=== PATIENT | female | born 1980 | race Caucasian/White ===

== ENCOUNTER 2017-04-07 16:32 | Emergency (ER) | payer BC ==
--- NOTE | 2017-04-07 18:22 | UC ---
Complaint Female HPI - HPI Summary HPI Summary: C/o painful irritation with walking and urination around labia-began after whering a thron and dancing and sweating 2 nights ago---though she had a yeast infection so she tried monostat with out relief of sx - History Of Current Complaint Chief Complaint: UCGU Stated Complaint: PERSONAL Time Seen by Provider: 04/07/17 17:58 Hx Obtained From: Patient Hx Last Menstrual Period: 2 wks ?: No Onset/Duration: Sudden Onset, Lasting Days - 2 Timing: Constant Severity Initially: Severe Severity Currently: Severe Pain Intensity: 10 - hurts to walk Pain Scale Used: 0-10 Numeric Character: Burning Aggravating Factor(s): Movement, Urination Alleviating Factor(s): Nothing Associated Signs And Symptoms: Positive: Genital Swelling - Allergies/Home Medications Allergies/Adverse Reactions: Allergies Allergy/AdvReac Type Severity Reaction Status Date / Time Cephalexin [From Keflex] Allergy See Comment Verified 04/07/17 16:49 PMH/Surg Hx/FS Hx/Imm Hx Previously Healthy: Yes Psychological History: Anxiety - Surgical History Surgical History: Yes Surgery Procedure, Year, and Place: tubal ligation - Family History Known Family History: Positive: None - Social History Occupation: Employed Full-time - truck driver heavy Lives: With Family Alcohol Use: Rare Substance Use Type: None Smoking Status (MU): Heavy Every Day Tobacco Smoker Type: Cigarettes Amount Used/How Often: ! PPD Review of Systems Constitutional: Negative Skin: Other - skin around vagina Eyes: Negative ENT: Negative Respiratory: Negative Cardiovascular: Negative Gastrointestinal: Negative Genitourinary: Negative, Other - labia tenderness, eythema and pain Motor: Negative Neurovascular: Negative Musculoskeletal: Negative Neurological: Negative Psychological: Negative Is Patient Immunocompromised?: No All Other Systems Reviewed And Are Negative: Yes Physical Exam Triage Information Reviewed: Yes Appearance: Well-Appearing, Pain Distress, Thin Vital Signs: Initial Vital Signs Temp 97.6 F 04/07/17 16:45 Pulse 108 04/07/17 16:45 Resp 18 04/07/17 16:45 BP 128/69 04/07/17 16:45 Pulse Ox 100 04/07/17 16:45 Vital Signs Reviewed: Yes Eye Exam: Normal Eyes: Positive: Conjunctiva Clear ENT Exam: Normal ENT: Positive: Normal ENT inspection, Hearing grossly normal, TMs normal. Negative: Nasal congestion, Nasal drainage, Trismus, Muffled/hoarse voice Dental Exam: Normal Neck exam: Normal Neck: Positive: Supple, Nontender Respiratory Exam: Normal Respiratory: Positive: Chest non-tender, Lungs clear, Normal breath sounds, No respiratory distress, No accessory muscle use Cardiovascular Exam: Normal Cardiovascular: Positive: RRR, No Murmur, Pulses Normal, Brisk Capillary Refill Abdominal Exam: Normal Abdomen Description: Positive: Nontender, No Organomegaly, Soft Bowel Sounds: Positive: Present Musculoskeletal Exam: Normal Musculoskeletal: Positive: Strength Intact, ROM Intact, No Edema Neurological Exam: Normal Neurological: Positive: Alert, Muscle Tone Normal Psychological Exam: Normal Skin Exam: Normal Skin: Positive: Other - labia swelling and erythema UC Physical Exam Vital Signs On Initial Exam: Initial Vitals Temp Pulse Resp BP Pulse Ox 97.6 F 108 18 128/69 100 04/07/17 16:45 04/07/17 16:45 04/07/17 16:45 04/07/17 16:45 04/07/17 16:45 - Genitalia Exam Female Genitourinary: Other - vulva--irratation, erythema Re-Evaluation - Re-Evaluation First Eval Change: Improved - external discomfort with pelvic examination--topical lidocaine applied with relief of discomfort Complaint Female Dx - Course Course Of Treatment: cool compress, lidocaine topical 4 times a day prn tylenol/ ibuprofen follow with pcp - Differential Dx/Diagnosis Provider Diagnoses: External genital mechanical irratation Discharge - Discharge Plan Condition: Stable Disposition: HOME Patient Education Materials: Acetaminophen (By mouth), Ibuprofen (By mouth), Cold Compress or Soak (ED) Referrals: [facility] [Provider Group] - 3 Days Additional Instructions: 3 cc of lidocaine topical on a gauze apply to labia minor 4-5 times a day for pain
[2017-04-07] MEDS ORDERED: Lidocaine 2% JELLY* 10 ML JELLY TOPICAL ONE (18:43)
[2017-04-07] MEDS ORDERED: Lidocaine 4% GEL* 10 GM TUBE TOPICAL ONE ×2 (18:43→18:56)
[2017-04-07] MEDS ORDERED: Lidocaine 4% TOPICAL* 50 ML TOP.SOLN TOPICAL ONE (18:56)
[2017-04-07 19:14] VITALS: BP 115/85
--- NOTE | 2017-04-08 17:19 | UC ---
Progress - Progress Note Progress Note: please notify pt she has trich flagyl 500mg bid x 7 days e Rxed partner needs to be treated too Re-Evaluation - Re-Evaluation First Eval Change: Improved - external discomfort with pelvic examination--topical lidocaine applied with relief of discomfort
== END 2017-04-07 19:22 | disposition home or self-care (01) ==
LOC: UCEAST 16:32
DX: N94.9 Unspecified condition associated with female genital organs and menstrual cycle (principal); F17.210 Nicotine dependence, cigarettes, uncomplicated
CPT/HCPCS: 81003; 81025; 87086; 87480; 87491; 87510; 87591; 87660; 99213; A9270-GY; G0463

== ENCOUNTER 2017-05-27 16:13 | Emergency (ER) | payer BC ==
[2017-05-27 18:14] VITALS: BP 111/76
--- NOTE | 2017-05-27 18:26 | UC ---
Complaint Female HPI - HPI Summary HPI Summary: Pain Burning frequency urgency with urination began 3 days ago - History Of Current Complaint Chief Complaint: UCGU Stated Complaint: UTI COMPLAINT Time Seen by Provider: 05/27/17 18:24 Hx Obtained From: Patient Hx Last Menstrual Period: tubal ?: No Onset/Duration: Gradual Onset, Lasting Days - 3, Still Present Timing: Constant Severity Initially: Moderate Severity Currently: Moderate Character: Burning Aggravating Factor(s): Urination Alleviating Factor(s): Nothing Associated Signs And Symptoms: Positive: Negative - Allergies/Home Medications Allergies/Adverse Reactions: Allergies Allergy/AdvReac Type Severity Reaction Status Date / Time Cephalexin [From Keflex] Allergy See Comment Verified 04/07/17 16:49 PMH/Surg Hx/FS Hx/Imm Hx Previously Healthy: No Psychological History: Depression - Surgical History Surgical History: Yes Surgery Procedure, Year, and Place: tubal ligation - Family History Known Family History: Positive: None - Social History Occupation: Employed Full-time Lives: With Family Alcohol Use: Rare Substance Use Type: None Smoking Status (MU): Heavy Every Day Tobacco Smoker Type: Cigarettes Amount Used/How Often: ! PPD Have You Smoked in the Last Year: Yes Review of Systems Constitutional: Chills Skin: Negative Eyes: Negative ENT: Negative Respiratory: Negative Cardiovascular: Negative Gastrointestinal: Negative Genitourinary: Dysuria, Frequency, Urgency Motor: Negative Neurovascular: Negative Musculoskeletal: Negative Neurological: Negative Psychological: Negative Is Patient Immunocompromised?: No All Other Systems Reviewed And Are Negative: Yes Physical Exam Triage Information Reviewed: Yes Appearance: Well-Appearing, No Pain Distress, Well-Nourished Vital Signs: Initial Vital Signs Temp 97.9 F 05/27/17 16:33 Pulse 70 05/27/17 16:33 Resp 18 05/27/17 16:33 BP 103/54 05/27/17 16:33 Pulse Ox 100 05/27/17 16:33 Vital Signs Reviewed: Yes Eye Exam: Normal Eyes: Positive: Conjunctiva Clear ENT Exam: Normal ENT: Positive: Normal ENT inspection, Hearing grossly normal. Negative: Nasal congestion, Trismus, Muffled voice, Hoarse voice Dental Exam: Normal Neck exam: Normal Neck: Positive: Supple, Nontender, No Lymphadenopathy Respiratory Exam: Normal Respiratory: Positive: Chest non-tender, Lungs clear, Normal breath sounds, No respiratory distress, No accessory muscle use Cardiovascular Exam: Normal Cardiovascular: Positive: RRR, No Murmur, Pulses Normal, Brisk Capillary Refill Abdominal Exam: Normal Abdomen Description: Positive: No Organomegaly, Soft, Other: - suprapubic discomfort. Negative: CVA Tenderness (R), CVA Tenderness (L) Bowel Sounds: Positive: Present Musculoskeletal Exam: Normal Musculoskeletal: Positive: Strength Intact, ROM Intact, No Edema Neurological Exam: Normal Neurological: Positive: Alert, Muscle Tone Normal Psychological Exam: Normal Skin Exam: Normal Diagnostics - Laboratory Diagnostic Studies Completed/Ordered: +2 blood, +2 leukoesterace in urine Complaint Female Dx - Course Course Of Treatment: Culyure urine, increase fluids, macrobid, pyridium follow with pcp prn - Differential Dx/Diagnosis Provider Diagnoses: UTI, Nicotine Dependent Discharge - Discharge Plan Condition: Stable Disposition: HOME Prescriptions: Nitrofurantoin Monohyd Macro [Macrobid] 100 mg PO BID #20 cap Phenazopyridine TAB* [Pyridium 100 mg TAB*] 100 mg PO TID PRN #9 tab PRN Reason: urinary pain and burning Patient Education Materials: Phenazopyridine (By mouth), Urinary Tract Infection in Women (ED) Referrals: Abdiel Ramos MD [Primary Care Provider] - If Needed
== END 2017-05-27 18:42 | disposition home or self-care (01) ==
LOC: UCEAST 16:13
DX: N39.0 Urinary tract infection, site not specified (principal); F17.210 Nicotine dependence, cigarettes, uncomplicated
CPT/HCPCS: 81003; 87086; 99212; G0463